=== PATIENT | female | born 1945 | race Caucasian/White ===

== ENCOUNTER 2018-10-02 12:33 | Outpatient (REF) | payer MEDICARE, OTHER, SELFPAY ==
[2018-10-02 19:18] LABS: ALT 29 U/L (12-78); AST 22 U/L (15-37); Albumin 4.1 g/dL (3.4-5.0); Alkaline Phosphatase 81 U/L (46-116); Anion Gap 11.5 mmol/L (3-11); BUN 18 mg/dL (7-18); Bilirubin, Total 0.7 mg/dL (0.2-1.0); CO2 27.5 mmol/L (21.0-32.0); CREATININE 0.69 mg/dL (0.55-1.02); Calcium 9.7 mg/dL (8.5-10.1); Chloride 104 mmol/L (98-107); Cholesterol 237 mg/dL (50-200); Glucose 121 mg/dL (70-100); HDL Cholesterol 66 mg/dL (40-60); LDL CHOLESTEROL 148 mg/dL (<100); Potassium 3.8 mmol/L (3.5-5.1); Sodium 143 mmol/L (136-145); Total Protein 7.3 g/dL (6.4-8.2); Triglyceride 140 mg/dL (30-150)
[2018-10-02 19:35] LABS: Hemoglobin A1C 6.2 % (4.5-6.2)
== END 2018-10-02 12:53 ==
LOC: NCHCN 12:33
PROVIDERS: PCP Family Medicine; Visit Provider Physician Assistant Medical
DX: E78.5 Hyperlipidemia, unspecified (principal); R73.01 Impaired fasting glucose
CPT/HCPCS: 80053; 80061; 83721; 83036

== ENCOUNTER 2019-10-04 12:41 | Outpatient (REF) | payer MEDICARE, OTHER, SELFPAY ==
[2019-10-04 22:01] LABS: Hemoglobin A1C 5.9 % (3.8-5.6)
[2019-10-04 22:17] LABS: ALT 37 U/L (14-59); AST 28 U/L (15-37); Alkaline Phosphatase 79 U/L (46-116); Anion Gap 11.4 mmol/L (3-11); BUN 14 mg/dL (7-18); Bilirubin, Total 0.5 mg/dL (0.2-1.0); CO2 25.6 mmol/L (21.0-32.0); Calcium 9.4 mg/dL (8.5-10.1); Calculated LDL 122 mg/dL; Chloride 104 mmol/L (98-107); Cholesterol 212 mg/dL (<200); Glucose 113 mg/dL (74-106); HDL Cholesterol 61 mg/dL (40-60); Potassium 3.8 mmol/L (3.5-5.1); Sodium 141 mmol/L (136-145); Triglyceride 148 mg/dL (<150); Vitamin B12 288 pg/mL (193-986)
== END 2019-10-04 13:01 ==
LOC: NCHCN 12:41
PROVIDERS: PCP Family Medicine; Visit Provider Physician Assistant Medical
DX: E78.5 Hyperlipidemia, unspecified (principal); R73.01 Impaired fasting glucose
CPT/HCPCS: 80053; 80061; 82607; 83036

== ENCOUNTER 2020-10-06 13:46 | Outpatient (REF) | payer MEDICARE, OTHER, SELFPAY ==
[2020-10-06 16:05] LABS: Abs Immature Grans 0.01 10^3/uL (0.0-0.06); Absolute Basophil Count 0.02 10^3/uL (0.0-0.2); Absolute Eosinophil Count 0.07 10^3/uL (0.0-0.7); Absolute Lymphocyte Count 1.36 10^3/uL (1.2-3.4); Absolute Neutrophil Count 1.97 10^3/uL (1.2-6.7); Basophils % 0.5; Eosinophils % 1.8; HCT 42.5 % (36.0-46.0); HGB 14.5 g/dL (11.2-15.7); Immature Grans % 0.3; Lymphocytes % 34.6; MCH 31.3 pg (27.0-33.0); MCHC 34.1 % (32.0-36.0); MCV 91.6 fL (80-95); MPV 10.8 fL (8.0-11.0); Monocytes % 12.7; Neutrophils % 50.1; Nucleated RBC 0 %; Platelet Count 134 10^3/uL (130-400); RBC 4.64 10^6/uL (3.93-5.22); RDW 11.2 % (11.7-14.6); RDW-SD 37.9 fL; WBC 3.93 10^3/uL (4.4-10.8)
[2020-10-06 16:30] LABS: ALT 25 U/L (14-59); AST 17 U/L (15-37); Albumin 4.2 g/dL (3.4-5.0); Alkaline Phosphatase 68 U/L (46-116); BUN 13 mg/dL (7-18); Bilirubin, Total 0.6 mg/dL (0.2-1.0); CREATININE 0.61 mg/dL (0.55-1.02); Calcium 9.4 mg/dL (8.5-10.1); Calculated LDL 122 mg/dL (<100); Chloride 105 mmol/L (98-107); Cholesterol 218 mg/dL (<200); Glucose 109 mg/dL (74-106); HDL Cholesterol 77 mg/dL (40-60); Potassium 3.9 mmol/L (3.5-5.1); Sodium 140 mmol/L (136-145); Triglyceride 99 mg/dL (<150)
[2020-10-06 16:39] LABS: Hemoglobin A1C 5.9 % (<5.7)
== END 2020-10-06 14:06 ==
LOC: NCHCN 13:46
PROVIDERS: PCP Family Medicine; Visit Provider Physician Assistant Medical
DX: E78.5 Hyperlipidemia, unspecified (principal); R73.01 Impaired fasting glucose; D69.6 Thrombocytopenia, unspecified
CPT/HCPCS: 80053; 80061; 83036; 85025

== ENCOUNTER 2021-10-08 14:18 | Outpatient (REF) | payer MEDICARE, OTHER, SELFPAY ==
[2021-10-08 12:51] LABS: Hemoglobin A1C 5.7 % (<5.7)
[2021-10-08 13:04] LABS: ALT 28 U/L (14-59); AST 18 U/L (15-37); Albumin 4.2 g/dL (3.4-5.0); Alkaline Phosphatase 68 U/L (46-116); Anion Gap 11.6 mmol/L (3-11); BUN 15 mg/dL (7-18); Bilirubin, Total 0.7 mg/dL (0.2-1.0); CO2 26.4 mmol/L (21.0-32.0); CREATININE 0.7 mg/dL (0.55-1.02); Calcium 9.4 mg/dL (8.5-10.1); Calculated LDL 134 mg/dL (<100); Chloride 101 mmol/L (98-107); Cholesterol 229 mg/dL (<200); Glucose 122 mg/dL (74-106); HDL Cholesterol 79 mg/dL (40-60); Potassium 3.5 mmol/L (3.5-5.1); Sodium 139 mmol/L (136-145); Total Protein 7.2 g/dL (6.4-8.2); Triglyceride 83 mg/dL (<150)
== END 2021-10-08 14:19 | disposition home or self-care (01) ==
LOC: NCHCN 14:18
PROVIDERS: PCP Physician Assistant Medical; Visit Provider Physician Assistant Medical
DX: R73.03 Prediabetes (principal); E78.5 Hyperlipidemia, unspecified
CPT/HCPCS: 80053; 80061; 83036

== ENCOUNTER 2022-10-04 14:44 | Outpatient (REF) | payer MEDICARE, SELFPAY ==
--- NOTE | 2022-10-04 14:18 | SKI_PTH ---
PATIENT: Ronit Fisher LOC: [facility] U#:[id number] AGE/SX: 77/F ROOM: RE10/04/[address]: FITO Shetty : 1945 BED: DIS: 10/04/2022 SPEC #: [id number] RECD: 10/04/22 18:23 STATUS: PAT REQ #: [id number] SURENDRA: 10/04/22 14:[address]: Damien Hooks DEPT: Surgical Specimen RECD BY: Jo Liu ENTERED: 10/04/22 18:23 SP TYPE: CHAD HEARD DR: Constantine Calhoun Tissues: 1 - SKIN BIOPSY(SHAVE/PUNCH) Procedures: IMMUNOPEROXIDASE STAIN SKIN LEVEL 4 Comments: [id number]
== END 2022-10-04 14:45 | disposition home or self-care (01) ==
LOC: LBN 14:44
PROVIDERS: PCP Physician Assistant Medical; Visit Provider Physician Assistant
DX: D22.9 Melanocytic nevi, unspecified (principal)
CPT/HCPCS: 88305; 88361

== ENCOUNTER 2022-10-09 17:56 | Outpatient (REF) | payer MEDICARE, SELFPAY ==
[2022-10-09 16:09] LABS: Hemoglobin A1C 5.7 % (<5.7)
[2022-10-09 16:15] LABS: ALT 26 U/L (14-59); AST 24 U/L (15-37); Albumin 4.2 g/dL (3.4-5.0); Alkaline Phosphatase 70 U/L (46-116); Anion Gap 11.9 mmol/L (3-11); BUN 17 mg/dL (7-18); Bilirubin, Total 0.7 mg/dL (0.2-1.0); CO2 23.1 mmol/L (21.0-32.0); CREATININE 0.7 mg/dL (0.55-1.02); Calcium 9.6 mg/dL (8.5-10.1); Calculated LDL 122 mg/dL (<100); Chloride 104 mmol/L (98-107); Cholesterol 223 mg/dL (<200); Estimated GFR 89.58 (mL/min/1.73m2); Glucose 117 mg/dL (74-106); HDL Cholesterol 82 mg/dL (40-60); Potassium 3.5 mmol/L (3.5-5.1); Sodium 139 mmol/L (136-145); Total Protein 7.1 g/dL (6.4-8.2); Triglyceride 99 mg/dL (<150); Vitamin B12 778 pg/mL (193-986)
== END 2022-10-09 17:57 | disposition home or self-care (01) ==
LOC: NCHCN 17:56
PROVIDERS: PCP Physician Assistant Medical; Visit Provider Physician Assistant Medical
DX: E78.5 Hyperlipidemia, unspecified (principal); R73.03 Prediabetes; E53.8 Deficiency of other specified B group vitamins
CPT/HCPCS: 80053; 80061; 82607; 83036

== ENCOUNTER 2023-10-17 15:24 | Outpatient (REF) | payer MEDICARE, SELFPAY ==
[2023-10-17 15:34] LABS: ALT 25 U/L (14-59); AST 19 U/L (15-37); Albumin 3.9 g/dL (3.4-5.0); Alkaline Phosphatase 62 U/L (46-116); Anion Gap 11.3 mmol/L (3-11); BUN 15 mg/dL (7-18); Bilirubin, Total 0.8 mg/dL (0.2-1.0); CO2 25.7 mmol/L (21.0-32.0); CREATININE 0.7 mg/dL (0.55-1.02); Calcium 9.7 mg/dL (8.5-10.1); Calculated LDL 132 mg/dL (<100); Chloride 104 mmol/L (98-107); Cholesterol 229 mg/dL (<200); Estimated GFR 89.02 (mL/min/1.73m2); Glucose 127 mg/dL (74-106); HDL Cholesterol 75 mg/dL (40-60); Potassium 3.6 mmol/L (3.5-5.1); Sodium 141 mmol/L (136-145); Total Protein 7.2 g/dL (6.4-8.2); Triglyceride 114 mg/dL (<150)
[2023-10-17 15:52] LABS: Hemoglobin A1C 5.9 % (<5.7)
== END 2023-10-17 15:25 | disposition home or self-care (01) ==
LOC: NCHCN 15:24
PROVIDERS: PCP Physician Assistant Medical; Visit Provider Physician Assistant Medical
DX: E78.5 Hyperlipidemia, unspecified (principal); R73.03 Prediabetes
CPT/HCPCS: 80053; 80061; 83036

== ENCOUNTER 2024-10-19 14:12 | Outpatient (REF) | payer MEDICARE, SELFPAY ==
[2024-10-19 16:20] LABS: ALT 22 U/L (14-59); AST 23 U/L (15-37); Albumin 4.1 g/dL (3.4-5.0); Alkaline Phosphatase 73 U/L (46-116); Anion Gap 8.1 mmol/L (3-11); BUN 15 mg/dL (7-18); Bilirubin, Total 0.62 mg/dL (0.2-1.0); CO2 26.9 mmol/L (21.0-32.0); CREATININE 0.8 mg/dL (0.55-1.02); Calculated LDL 127 mg/dL (<100); Chloride 103 mmol/L (98-107); Cholesterol 228 mg/dL (<200); Estimated GFR 75.37 (mL/min/1.73m2); Glucose 123 mg/dL (74-106); HDL Cholesterol 84 mg/dL (40-60); Potassium 3.4 mmol/L (3.5-5.1); Sodium 138 mmol/L (136-145); Total Protein 7.3 g/dL (6.4-8.2); Triglyceride 87 mg/dL (<150)
[2024-10-19 17:03] LABS: Hemoglobin A1C 5.9 % (<5.7)
== END 2024-10-19 14:13 | disposition home or self-care (01) ==
LOC: NCHCN 14:12
PROVIDERS: PCP Physician Assistant Medical; Visit Provider Physician Assistant Medical
DX: E78.5 Hyperlipidemia, unspecified (principal); R73.03 Prediabetes
CPT/HCPCS: 80053; 80061; 82306; 83036